=== PATIENT | male | born 1990 ===

== ENCOUNTER 2021-07-08 01:49 | Emergency (ER) | payer MEDICAID ==
[2021-07-08] MEDS ORDERED: LORazepam 2 MG/ML SDV IM ONE (02:24)
== END 2021-07-08 03:25 | disposition home or self-care (01) ==
LOC: MW.ED 01:49
DX: F41.0 Panic disorder [episodic paroxysmal anxiety] (principal)
CPT/HCPCS: 93005; 96372; 99283; J2060

== ENCOUNTER 2021-07-08 18:53 | Emergency (ER) | payer MEDICAID | END 2021-07-08 19:29 | disposition home or self-care (01) | LOC: MW.ED 18:53 | DX: F41.9 Anxiety disorder, unspecified (principal); Z76.0 Encounter for issue of repeat prescription | CPT/HCPCS: 99283 ==